=== PATIENT | male | born 2000 ===

== ENCOUNTER 2020-07-04 23:30 | Emergency (ER) | payer OTHER ==
[2020-07-04] MEDS ORDERED: Lidocaine 1% 30 ML SDV INJECT ONE (23:52)
[2020-07-04] MEDS ORDERED: Morphine 4 MG/ML Syringe IVPUSH ONE (23:52)
[2020-07-04] MEDS ORDERED: Midazolam 1 MG/ML 2 ML SDV IVPUSH ONE (23:53)
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
--- NOTE | 2020-07-05 08:06 | CR ---
[id number] RAD/RAD Elbow Right 3V Min EXAM: RAD Elbow Right 3V Min CLINICAL DATA: TRAUMA COMPARISON: No previous similar exam is available. FINDINGS: No fracture or dislocation is seen Soft tissue laceration with tiny foreign bodies is seen adjacent to the olecranon. IMPRESSION: NO FRACTURE OR DISLOCATION Landen Schulte MD 07/05/20 0806 Thank you for allowing us to participate in the care of your patient.
--- NOTE | 2020-07-05 08:08 | CR ---
[id number] RAD/RAD Hand Right 3V EXAM: RAD Hand Right 3V CLINICAL DATA: TRAUMA COMPARISON: No previous similar exam is available. FINDINGS: No fracture or dislocation is seen. A radiopaque metallic density is seen peripheral to the region of the triangular fibrocartilaginous complex. Distal to this adjacent to the fifth metacarpal there is a smaller radiopaque foreign body There is no air in the soft tissues. There is no cortical thickening or periosteal reaction either. IMPRESSION: NO FRACTURE OR DISLOCATION FOREIGN BODY DESCRIBED Landen Schulte MD 07/05/20 0808 Thank you for allowing us to participate in the care of your patient.
== END 2020-07-05 02:10 | disposition home or self-care (01) ==
LOC: VM.ED 23:30
DX: S61.411A Laceration without foreign body of right hand, initial encounter (principal); S61.511A Laceration without foreign body of right wrist, initial encounter; S51.011A Laceration without foreign body of right elbow, initial encounter; S16.1XXA Strain of muscle, fascia and tendon at neck level, initial encounter; Z88.0 Allergy status to penicillin; V49.9XXA Car occupant (driver) (passenger) injured in unspecified traffic accident, initial encounter; Y92.410 Unspecified street and highway as the place of occurrence of the external cause
CPT/HCPCS: 12002; 12032; 73080-RT; 73130-RT; 96374; 96375; 99283; 99284-25; J2250; J2270